=== PATIENT | male | born 1975 | race African-American/Black ===

== ENCOUNTER 2017-11-27 13:30 | Emergency (ER) | payer SELFPAY ==
[2017-11-27 16:10] LABS: BILIRUBIN,URINE NEGATIVE (NEG); CLARITY,URINE CLEAR; COLOR,URINE AMBER; GLUCOSE,URINE NEGATIVE (NEG); NITRITE,URINE NEGATIVE (NEG); PROTEIN,URINE NEGATIVE (NEG-TRACE)
[2017-11-27 16:27] LABS: BACTERIA,URINE FEW /HPF (0-FEW); RBC,URINE 0 /HPF (0-2); SQUAMOUS EPITHELIAL CELL,UR OCC /LPF
[2017-11-27] MEDS: cefTRIAXone IM 250 MG VIAL IM (16:45)
[2017-11-27] MEDS: AZITHROMYCIN 250 MG TABLET. PO (16:45)
== END 2017-11-27 18:08 | disposition home or self-care (01) ==
LOC: ER 13:30
DX: N45.1 Epididymitis (principal); Z20.2 Contact with and (suspected) exposure to infections with a predominantly sexual mode of transmission
CPT/HCPCS: 76870; 81001; 87086; 87491; 87591; 96372; 99285-25; J0696; Q0144